=== PATIENT | male | born 1975 | race African-American/Black ===

== ENCOUNTER 2017-07-14 17:58 | Emergency (ER) ==
[2017-07-14 18:07] VITALS: BP 117/73; TEMP 101.3; BMI 43.5
--- NOTE | 2017-07-14 18:22 | ED.PDOC ---
General ED Provider: Dr. RIK PEREZ Chief Complaint: Respiratory Complaint Stated Complaint: flu like symptoms Time Seen by Physician: 18:00 Mode of Arrival: Walk-In Information Source: Patient Exam Limitations: No limitations [facility] and Triage Documentation Reviewed and Agree: Yes (son has flu) Reviewed sepsis parameters & appropriate labs ordered?: Yes System Inflammatory Response Syndrome: Not Applicable Sepsis Protocol: For patient's 13 years and over: Temp is 96.8 and below OR 101 and greater Pulse >90 BPM Resp >20/minute Acutely Altered Mental Status Are patient's symptoms suggestive of a new infection, such as: -Pneumonia -Skin, Soft Tissue -Endocarditis -UTI -Bone, Joint Infection -Implantable Device -Acute Abdominal Infection -Wound Infection -Meningitis -Blood Stream Catheter Infection -Unknown System Inflammatory Response Syndrome: Not Applicable Respiratory Complaint Exam - Respiratory Complaint/Exam Onset/Duration: 3 days Symptoms Are: Still present Timing: Intermittent Initial Severity: Mild Current Severity: Mild Location: Nose, Throat, Chest Aggravating: Reports: URI Alleviating: Reports: None Associated Signs and Symptoms: Reports: URI, Nasal congestion, Sore throat. Denies: Rapid breathing, Dyspnea, Fever, Chills, Chest pain, Pleuritic chest pain, Wheezing, Hemoptysis, Dizziness, Calf pain, Calf swelling, Edema, Hoarseness, Sinus discomfort, Vomiting, Weight loss, Decreased oral intake, Increased thirst, Increased appetite, Increased urination Related History: Reports: Similar episode History of Healthcare-Acquired Pneumonia: No Related Surgical History: Reports: None Pulmonary Embolism Risk Factors: None Cardiac Risk Factors: Reports: Diabetes Pseudomonas Risk Factors: Reports: None Tuberculosis Risk Factors: Reports: None Status Asthmaticus Risk Factors: Reports: None Home Oxygen Use: No Recent Stress Test: No Recent Echo/LV Function: No Current Antibiotic Use: No Current Asthma Medication Use: No Respiratory Distress: None Inadequate Respiratory Effort: No Dysphagia Present: No Stridor Present: No JVD Present: No Retractions: Not Present Diminished Breath Sounds: No Sinus Tenderness: None Grunting Respirations: No Kussmaul Respirations: No Differential Diagnoses: Pneumonia, Bronchitis, URI, Lower Resp. Infection Review of Systems - Review Of Systems Constitutional: Reports: Fever, Malaise, Weakness, Loss of appetite Eyes: Reports: No symptoms Ears, Nose, Mouth, Throat: Reports: No symptoms Respiratory: Reports: Cough Cardiac: Reports: No symptoms GI: Reports: No symptoms : Reports: No symptoms Musculoskeletal: Reports: No symptoms Skin: Reports: No symptoms Neurological: Reports: No symptoms Endocrine: Reports: No symptoms Hematologic/Lymphatic: Reports: No symptoms All Other Systems: Reviewed and Negative Past Medical History - Past Medical History Previously Healthy: No Endocrine: Reports: DM 2, Dyslipidemia Cardiovascular: Reports: None Respiratory: Reports: None Hematological: Reports: None Gastrointestinal: Reports: None Genitourinary: Reports: None Neuro/Psych: Reports: None Musculoskeletal: Reports: None Cancer: Reports: None - Surgical History General Surgical History: Reports: Cholecystectomy - Family History Family History: Reports: None - Social History Smoking Status: Former smoker Hx Substance Use: No Alcohol Screening: None Physical Exam - Physical Exam Appearance: Ill-appearing Ill-appearing: Mild Pain Distress: Mild Eyes: MARIANNE, EOMI, Conjunctiva clear ENT: Ears normal, Nose normal, Oropharynx normal Respiratory: Rhonchi Cardiovascular: RRR, Pulses normal, No rub, No murmur GI/: Soft, Nontender, No masses, Bowel sounds normal, No Organomegaly Musculoskeletal: Normal strength, ROM intact, No edema, No calf tenderness Skin: Warm, Dry, Normal color Neurological: Sensation intact, Motor intact, Reflexes intact, Cranial nerves intact, Alert, Oriented Psychiatric: Affect appropriate, Mood appropriate Critical Care Note - Critical Care Note Total Time (mins): 0 Course - Course Orders, Labs, Meds: Orders Category Date Time Status FLU A/B MOLECULAR Stat LAB 07/14/17 18:19 Uncollected MOLECULAR GROUP A STREP Stat LAB 07/14/17 18:19 Uncollected CHEST, 2 VIEWS PA & LAT Stat RADS 07/14/17 18:18 Ordered Vital Signs: Temp Pulse Resp BP Pulse Ox 07/14/17 17:58 101.3 F H 89 20 117/73 95 Departure - Departure Time of Disposition: 19:00 Disposition: HOME SELF-CARE Discharge Problem: Viral syndrome, Cough Instructions: Viral Syndrome (ED) Condition: Good Pt referred to PMD for follow-up: Yes IPMP verified?: Yes Additional Instructions: Please call your Family Physician as soon as possible to schedule a follow-up appointment. Allergies/Adverse Reactions: Allergies No Known Allergies Allergy (Verified 07/14/17 18:08) Home Medications: Ambulatory Orders 1 [No Reported Medications] 11/03/15 Disposition Discussed With: Patient
--- NOTE | 2017-07-14 18:35 | DI ---
EXAM: PA and lateral views of the chest. HISTORY: Cough. Fever. FINDINGS: The bones are unremarkable. The cardiac silhouette and pulmonary vasculature are within no rmal limits. The costophrenic angles are clear. No infiltrate or consolidation. Impression: No acute cardiopulmonary disease.
[2017-07-14] MEDS ORDERED: ZITHROMAX PO STA (18:37)
== END 2017-07-14 18:58 | disposition home or self-care (01) ==
LOC: ED 17:58
DX: B34.9 Viral infection, unspecified (principal); R05 Cough
CPT/HCPCS: 87502; 87651; 99283

== ENCOUNTER 2018-08-12 17:42 | Emergency (ER) ==
[2018-08-12 17:47] VITALS: BP 132/75; TEMP 98.4; BMI 35.6
[2018-08-12] MEDS ORDERED: DUONEB NEB STA (19:26)
--- NOTE | 2018-08-12 19:58 | ED.PDOC ---
General ED Provider: Dr. RALPH DALY Chief Complaint: Respiratory Complaint Stated Complaint: cough and conjestion for few days, cough is productive of yellow sputum and feels short of breath with wheezing. He is a former smoker. Also complains of a sore throat. Time Seen by Physician: 19:56 Mode of Arrival: Walk-In Information Source: Patient Exam Limitations: No limitations Primary Care Provider: SANTOS FLANNERY Nursing and Triage Documentation Reviewed and Agree: Yes Does patient meet sepsis criteria?: No System Inflammatory Response Syndrome: Not Applicable Sepsis Protocol: For patient's 13 years and over: Temp is 96.8 and below OR 101 and greater Pulse >90 BPM Resp >20/minute Acutely Altered Mental Status Are patient's symptoms suggestive of a new infection, such as: -Pneumonia -Skin, Soft Tissue -Endocarditis -UTI -Bone, Joint Infection -Implantable Device -Acute Abdominal Infection -Wound Infection -Meningitis -Blood Stream Catheter Infection -Unknown Respiratory Complaint Exam - Respiratory Complaint/Exam Onset/Duration: 3-5 days Symptoms Are: Still present Timing: Constant Initial Severity: Mild Current Severity: Moderate Location: Throat, Chest Character: Reports: Productive cough (yellow sputum) Aggravating: Reports: Weather, Deep breaths Alleviating: Reports: None Associated Signs and Symptoms: Reports: Dyspnea, Wheezing History of Healthcare-Acquired Pneumonia: No Related Surgical History: Reports: None Pulmonary Embolism Risk Factors: None Cardiac Risk Factors: Reports: None Pseudomonas Risk Factors: Reports: None Tuberculosis Risk Factors: Reports: None Status Asthmaticus Risk Factors: Reports: None Home Oxygen Use: No Recent Stress Test: No Recent Echo/LV Function: No Current Antibiotic Use: No Current Asthma Medication Use: No Respiratory Distress: None Inadequate Respiratory Effort: No Dysphagia Present: No Stridor Present: No JVD Present: No Accessory Muscle Use: No Retractions: Not Present Diminished Breath Sounds: Yes Sinus Tenderness: None Differential Diagnoses: Bronchitis Review of Systems - Review Of Systems Constitutional: Reports: No symptoms, Malaise, Other (body aches ) Eyes: Reports: No symptoms Ears, Nose, Mouth, Throat: Reports: Throat pain Respiratory: Reports: Cough, Short of air, Wheezing Cardiac: Reports: No symptoms GI: Reports: No symptoms : Reports: No symptoms Musculoskeletal: Reports: No symptoms Skin: Reports: No symptoms Neurological: Reports: No symptoms Endocrine: Reports: No symptoms Hematologic/Lymphatic: Reports: No symptoms All Other Systems: Reviewed and Negative Past Medical History - Past Medical History Previously Healthy: No Endocrine: Reports: DM 2, Dyslipidemia Cardiovascular: Reports: None Respiratory: Reports: None Hematological: Reports: None Gastrointestinal: Reports: None Genitourinary: Reports: None Neuro/Psych: Reports: None Musculoskeletal: Reports: None Cancer: Reports: None Other Pertinent Past Medical History: Obesity - Surgical History General Surgical History: Reports: Cholecystectomy - Family History Family History: Reports: None - Social History Smoking Status: Former smoker Hx Substance Use: No Alcohol Screening: None Physical Exam - Physical Exam Appearance: Ill-appearing, Obese Ill-appearing: Moderate Pain Distress: Mild Eyes: MARIANNE, EOMI, Conjunctiva clear ENT: Ears normal, Nose normal, Oropharynx normal Neck: Supple Respiratory: Rhonchi, Wheezes Cardiovascular: RRR, Pulses normal, No rub, No murmur GI/: Soft, Nontender, No masses, Bowel sounds normal, No Organomegaly Musculoskeletal: Normal strength, ROM intact, No edema, No calf tenderness Skin: Warm, Dry, Normal color Neurological: Sensation intact Interpretation - Radiology Interpretation Radiology Interpretation By: Radiologist Radiology Results: Negative Exam Interpreted: CXR Critical Care Note - Critical Care Note Total Time (mins): 30 Course - Course Hematology/Chemistry: 08/12/18 19:54 08/12/18 19:54 Orders, Labs, Meds: Lab Review 08/12/18 08/12/18 08/12/18 19:35 19:50 19:54 WBC 9.57 RBC 4.52 L Hgb 12.7 L Hct 38.4 L MCV 85.0 MCH 28.1 MCHC 33.1 RDW Coeff of Rashawn 12.5 Plt Count 317 Immature Gran % (Auto) 0.2 Neut % (Auto) 66.1 Lymph % (Auto) 25.7 [place] % (Auto) 5.9 Eos % (Auto) 1.8 Baso % (Auto) 0.3 Immature Gran # (Auto) 0.0 Neut # (Auto) 6.3 Lymph # (Auto) 2.5 [place] # (Auto) 0.6 Eos # (Auto) 0.2 Baso # (Auto) 0.0 Sodium Potassium Chloride Carbon Dioxide Anion Gap BUN Creatinine Estimated GFR (MDRD) BUN/Creatinine Ratio Glucose Hemoglobin A1c 11.54 H Calcium Total Bilirubin AST ALT Alkaline Phosphatase Total Protein Albumin Globulin Albumin/Globulin Ratio Influ A Molecular Assay Negative by naat Influ B Molecular Assay Negative by naat 08/12/18 19:54 WBC RBC Hgb Hct MCV MCH MCHC RDW Coeff of Rashawn Plt Count Immature Gran % (Auto) Neut % (Auto) Lymph % (Auto) [place] % (Auto) Eos % (Auto) Baso % (Auto) Immature Gran # (Auto) Neut # (Auto) Lymph # (Auto) [place] # (Auto) Eos # (Auto) Baso # (Auto) Sodium 134.3 L Potassium 4.14 Chloride 94.6 L Carbon Dioxide 29.7 Anion Gap 14.14 BUN 12.9 Creatinine 0.92 Estimated GFR (MDRD) 110.00 BUN/Creatinine Ratio 14.02 Glucose 432.7 H Hemoglobin A1c Calcium 9.42 Total Bilirubin 1.07 AST 25.9 ALT 19.6 Alkaline Phosphatase 76.8 Total Protein 8.30 H Albumin 4.72 Globulin 3.58 Albumin/Globulin Ratio 1.31 Influ A Molecular Assay Influ B Molecular Assay Orders Category Date Time Status NEBULIZER TREATMENT Stat CARDIO 08/12/18 19:26 Completed CBC W/ AUTO DIFF Stat LAB 08/12/18 19:54 Completed COMPREHENSIVE METABOLIC PANEL Stat LAB 08/12/18 19:54 Completed FLU A/B MOLECULAR Stat LAB 08/12/18 19:35 Completed HEMOGLOBIN A1C Stat LAB 08/12/18 19:50 Completed MOLECULAR GROUP A STREP Stat LAB 08/12/18 19:35 Completed Benzonatate [Tessalon Perles] MEDS 08/12/18 20:03 Discontinued 100 mg PO ONCE STA Insulin Regular, Human [Humulin R] MEDS 08/12/18 21:18 Stat 12 unit SUBCUT ONCE STA Ipratropium/Albuterol Neb [Duoneb] MEDS 08/12/18 19:26 Discontinued 1 vial NEB ONCE STA Prednisone MEDS 08/12/18 20:03 Discontinued 40 mg PO ONCE STA CHEST, 2 VIEWS PA & LAT Stat RADS 08/12/18 19:25 Completed Medications Discontinued Medications Generic Name Dose Route Start Last Admin Trade Name Freq PRN Reason Stop Dose Admin Albuterol/Ipratropium 1 vial 08/12/18 19:26 08/12/18 19:55 Duoneb NEB 08/12/18 19:27 1 vial ONCE STA Administration Benzonatate 100 mg 08/12/18 20:03 08/12/18 20:12 Tessalon Perles PO 08/12/18 20:04 100 mg ONCE STA Administration Insulin Human Regular 12 unit 08/12/18 21:18 Humulin R SUBCUT 08/12/18 21:19 ONCE STA Prednisone 40 mg 08/12/18 20:03 08/12/18 20:12 Prednisone PO 08/12/18 20:04 40 mg ONCE STA Administration Vital Signs: Temp Pulse Resp BP Pulse Ox 08/12/18 17:43 98.4 F 71 20 132/75 95 Departure - Departure Time of Disposition: 21:11 Disposition: HOME SELF-CARE Discharge Problem: Acute bronchitis Qualifiers: Bronchitis organism: other organism Qualified Code(s): J20.8 - Acute bronchitis due to other specified organisms Hyperglycemia due to type 2 diabetes mellitus Qualifiers: Diabetes mellitus detention insulin use: without detention use Qualified Code(s ): E11.65 - Type 2 diabetes mellitus with hyperglycemia Instructions: Acute Bronchitis (ED), Diabetic Hyperglycemia (ED), Wheezing (ED) Condition: Stable Pt referred to PMD for follow-up: Yes IPMP verified?: No Additional Instructions: Push fluids Follow up with Your PCP in 3 days Take medications as prescribed. Prescriptions: Albuterol Sulfate [Proair Hfa] 2 puff IH Q6H PRN #1 puff PRN Reason: wheezing Azithromycin [Zithromax] 250 mg PO DIRECTED #6 tablet Benzonatate [Tessalon Perles] 100 mg PO TID PRN #25 capsule PRN Reason: Cold Symptons Insulin Regular, Human [Humulin R] 1 unit SUBCUT ONCE #10 ml Syrge-Ndl,Ins 0.3 ml Half Ralph [Insulin Syringe] 1 each MC TIDAC PRN #120 disp.syrin PRN Reason: Diabetes for sliding scale Allergies/Adverse Reactions: Allergies No Known Allergies Allergy (Verified 08/12/18 17:46) Home Medications: Ambulatory Orders Albuterol Sulfate [Proair Hfa] 2 puff IH Q6H PRN #1 puff 08/12/18 Azithromycin [Zithromax] 250 mg PO DIRECTED #6 tablet 08/12/18 Benzonatate [Tessalon Perles] 100 mg PO TID PRN #25 capsule 08/12/18 Glipizide [Glipizide ER] 5 mg PO DAILY 08/12/18 Insulin Regular, Human [Humulin R] 1 unit SUBCUT ONCE #10 ml 08/12/18 Metformin HCl 1,000 mg PO BID 08/12/18 Syrge-Ndl,Ins 0.3 ml Half Ralph [Insulin Syringe] 1 each TIDAC PRN #120 disp.syrin 08/12/18 Disposition Discussed With: Patient
[2018-08-12] MEDS ORDERED: TESSALON PERLES PO STA (20:03)
[2018-08-12] MEDS ORDERED: PREDNISONE PO STA (20:03)
--- NOTE | 2018-08-12 20:52 | DI ---
Exam: Two-view chest x-ray. Date: 08/12/2018. Comparison: 07/14/2017. HISTORY: Shortness of breath. FINDINGS: No acute osseous abnormalities are seen. The lungs are clear. Cardiac silhouette and pul monary vasculature are normal. Impression: No acute intrathoracic findings.
[2018-08-12] MEDS ORDERED: HUMULIN R SUBCUT STA (21:18)
== END 2018-08-12 22:47 | disposition home or self-care (01) ==
LOC: ED 17:42
DX: J20.9 Acute bronchitis, unspecified (principal); E11.65 Type 2 diabetes mellitus with hyperglycemia; E78.5 Hyperlipidemia, unspecified; E66.9 Obesity, unspecified
CPT/HCPCS: 36415; 80053; 82962; 83036; 85025; 87502; 87651; 94640; 96372; 99284

== ENCOUNTER 2018-12-29 12:29 | Emergency (ER) ==
[2018-12-29 12:37] VITALS: BP 121/80; TEMP 97.9; BMI 35.3
[2018-12-29] MEDS ORDERED: HUMULIN R SUBCUT STA ×2 (13:54→15:15)
--- NOTE | 2018-12-29 16:08 | ED.PDOC ---
General ED Provider: Dr. RIK PEREZ Chief Complaint: Diabetes Stated Complaint: HIGH BLOOD SUGAR OUT OF MEDS FOR DAYS Time Seen by Physician: 14:00 (OUT OF MEDS) Mode of Arrival: Walk-In Information Source: Patient Primary Care Provider: SANTOS FLANNERY Nursing and Triage Documentation Reviewed and Agree: Yes Does patient meet sepsis criteria?: No System Inflammatory Response Syndrome: Not Applicable Sepsis Protocol: For patient's 13 years and over: Temp is 96.8 and below OR 101 and greater Pulse >90 BPM Resp >20/minute Acutely Altered Mental Status Are patient's symptoms suggestive of a new infection, such as: -Pneumonia -Skin, Soft Tissue -Endocarditis -UTI -Bone, Joint Infection -Implantable Device -Acute Abdominal Infection -Wound Infection -Meningitis -Blood Stream Catheter Infection -Unknown Endocrine Complaint Exam - Diabetic Complication Complaint/Exam Onset/Duration: HIGH BLOOD SUGAR ASOUT PT Symptoms Are: Still present Timing: Constant Initial Severity: Mild Current Severity: Mild Character: Alert Aggravating: Reports: Medication change Alleviating: Reports: None Associated Signs and Symptoms: Denies: Decreased LOC, Polydipsia, Polyuria, Polyphagia, Weight loss, Abdominal pain, Nausea, Vomiting, Fever, Diaphoresis, Fruity breath Related History: Reports: Similar episode Cardiac Risk Factors: Reports: DM, Hypertension CVA Risk Factors: Reports: DM, Hypertension Serious Bacterial Infection Risk Factors: Reports: None Related Surgical History: Reports: None Acetone on Breath: No Dry Mucous Membranes: No Kussmaul Respirations: No Glascow Coma Scale (see protocol): 15 Meningeal Signs: No Focal Weakness: None Focal Sensory Loss: None Gait: Normal Nystagmus Present: No Gag Reflex Present: Yes Finger to Nose: Normal Romberg Test Positive: No Differential Diagnoses: Hyperglycemia Review of Systems - Review Of Systems Constitutional: Reports: No symptoms Eyes: Reports: No symptoms Ears, Nose, Mouth, Throat: Reports: No symptoms Respiratory: Reports: No symptoms Cardiac: Reports: No symptoms GI: Reports: No symptoms : Reports: No symptoms Musculoskeletal: Reports: No symptoms Skin: Reports: No symptoms Neurological: Reports: No symptoms Endocrine: Reports: No symptoms Hematologic/Lymphatic: Reports: No symptoms All Other Systems: Reviewed and Negative Past Medical History - Past Medical History Previously Healthy: No Endocrine: Reports: DM 2, Dyslipidemia Cardiovascular: Reports: None Respiratory: Reports: None Hematological: Reports: None Gastrointestinal: Reports: None Genitourinary: Reports: None Neuro/Psych: Reports: None Musculoskeletal: Reports: None Cancer: Reports: None Other Pertinent Past Medical History: Obesity - Surgical History General Surgical History: Reports: Cholecystectomy - Family History Family History: Reports: None - Social History Smoking Status: Former smoker Hx Substance Use: No Alcohol Screening: None - Immunizations Tetanus Shot up to Date: No Physical Exam - Physical Exam Appearance: Well-appearing, No pain distress, Well-nourished Eyes: MARIANNE, EOMI, Conjunctiva clear ENT: Ears normal, Nose normal, Oropharynx normal Respiratory: Airway patent, Breath sounds clear, Breath sounds equal, Respirations nonlabored Cardiovascular: RRR, Pulses normal, No rub, No murmur GI/: Soft, Nontender, No masses, Bowel sounds normal, No Organomegaly Musculoskeletal: Normal strength, ROM intact, No edema, No calf tenderness Skin: Warm, Dry, Normal color Neurological: Sensation intact, Motor intact, Reflexes intact, Cranial nerves intact, Alert, Oriented Psychiatric: Affect appropriate, Mood appropriate Critical Care Note - Critical Care Note Total Time (mins): 0 Course - Course Hematology/Chemistry: 12/29/18 14:16 Orders, Labs, Meds: Lab Review 12/29/18 14:16 Sodium 136.1 Potassium 3.79 Chloride 98.0 Carbon Dioxide 29.7 Anion Gap 12.19 BUN 12.1 Creatinine 0.86 Estimated GFR (MDRD) 119.00 BUN/Creatinine Ratio 14.06 Glucose 481.5 H Calcium 9.67 Total Bilirubin 1.00 AST 21.1 ALT 23.1 Alkaline Phosphatase 63.8 Total Protein 8.22 H Albumin 4.42 Globulin 3.80 Albumin/Globulin Ratio 1.16 Orders Category Date Time Status COMPREHENSIVE METABOLIC PANEL Stat LAB 12/29/18 14:16 Completed Insulin Regular, Human [Humulin R] MEDS 12/29/18 15:15 Discontinued 4 unit SUBCUT ONCE STA Insulin Regular, Human [Humulin R] MEDS 12/29/18 13:54 Discontinued 6 unit SUBCUT ONCE STA Medications Discontinued Medications Generic Name Dose Route Start Last Admin Trade Name Freq PRN Reason Stop Dose Admin Insulin Human Regular 6 unit 12/29/18 13:54 12/29/18 14:06 Humulin R SUBCUT 12/29/18 13:55 6 unit ONCE STA Administration Insulin Human Regular 4 unit 12/29/18 15:15 12/29/18 15:22 Humulin R SUBCUT 12/29/18 15:16 4 unit ONCE STA Administration Vital Signs: Temp Pulse Resp BP Pulse Ox 12/29/18 12:30 97.9 F 82 20 121/80 95 Departure - Departure Time of Disposition: 16:08 Disposition: HOME SELF-CARE Discharge Problem: Uncontrolled diabetes mellitus Qualifiers: Diabetes mellitus type: type 2 Glycemic state: with hyperglycemia Qualified Code(s): E11.65 - Type 2 diabetes mellitus with hyperglycemia Instructions: Type 2 Diabetes in Adults: New Diagnosis (ED) Condition: Good Pt referred to PMD for follow-up: Yes IPMP verified?: No Additional Instructions: Please call your Family Physician as soon as possible to schedule a follow-up appointment. Allergies/Adverse Reactions: Allergies No Known Allergies Allergy (Verified 12/29/18 12:46) Home Medications: Ambulatory Orders Albuterol Sulfate [Proair Hfa] 2 puff IH Q6H PRN #1 puff 08/12/18 Glipizide [Glipizide ER] 5 mg PO DAILY 08/12/18 Metformin HCl 1,000 mg PO BID 08/12/18 Glipizide 5 mg PO DAILY #30 tablet 12/29/18 Metformin HCl 1,000 mg PO BID #30 tablet 12/29/18
== END 2018-12-29 16:39 | disposition home or self-care (01) ==
LOC: ED 12:29
DX: E11.65 Type 2 diabetes mellitus with hyperglycemia (principal); Z91.14 Patient's other noncompliance with medication regimen; I10 Essential (primary) hypertension; E78.5 Hyperlipidemia, unspecified
CPT/HCPCS: 36415; 80053; 96372; 99283